=== PATIENT | female | born 1985 | race Caucasian/White ===

== ENCOUNTER 2017-06-03 17:26 | Inpatient (IN) | payer SELFPAY ==
[~2017-06-03] VITALS: Ht 158.8 cm; Wt 51.9 kg
[2017-06-03 17:36] VITALS: BP 134/80; PULSE 110; RESP 20; TEMP 100.2; O2SAT 95
[2017-06-03 17:43] VITALS: O2SAT 98
--- NOTE | 2017-06-03 18:18 | RADRPT ---
EXAM DATE/TIME: 06/03/2017 18:16 [place] COMPARISON: No previous studies available for comparison. INDICATIONS : Cough. MEDICAL HISTORY : None. SURGICAL HISTORY : None. ENCOUNTER: Initial ACUITY: 2 days PAIN SCORE: 0/10 LOCATION: Bilateral chest FINDINGS: A single view of the chest demonstrates the lungs to be symmetrically aerated without evidence of mas s, infiltrate or effusion. The cardiomediastinal contours are unremarkable. Osseous structures are intact. CONCLUSION: The lungs are clear. Shadi De La O MD on June 03, 2017 at 18:16 Board Certified Radiologist. This report was verified electronically.
[2017-06-03 18:26] LABS: AUTOMATED NEUTROPHIL # 5.7 TH/MM3 (1.8-7.7); BASOPHIL % 0.4 % (0.0-2.0); EOSINOPHIL # 0.1 TH/MM3 (0-0.4); HEMATOCRIT 36.2 % (35.0-46.0); HEMO FLAGS DIFF FINAL; LYMPH % 23.7 % (9.0-44.0); LYMPHOCYTE # 2.1 TH/MM3 (1.0-4.8); MEAN CELL VOLUME 80.3 FL (80.0-100.0); MEAN CORPUSCULAR HEMOGLOBIN 26.5 PG (27.0-34.0); MONO % 10.9 % (0.0-8.0); PLATELET COUNT 181 TH/MM3 (150-450); RED BLOOD COUNT 4.51 MIL/MM3 (4.00-5.30); RED CELL DISTRIBUTION WIDTH 17.1 % (11.6-17.2); WHITE BLOOD COUNT 8.9 TH/MM3 (4.0-11.0)
--- NOTE | 2017-06-03 18:29 | PD ---
HPI Chief Complaint: Alcohol/Drug Intoxication Time Seen by Provider: 17:38 Travel History International Travel<30 days: No Contact w/Intl Traveler<30days: No Traveled to known affect area: No History of Present Illness HPI 31-year-old female was brought in by [employer]icia[employer] act. Patient was found shooting up heroin in public bathroom locally. Police was called. Patient admitted to shooting up heroin. Patient was brought in for evaluation. Patient denies any headache. Patient denies any chest pain or shortness of breath. Patient states that she had persistent cough recently. Patient denies any abdominal pain. Patient denies any nausea vomiting diarrhea. Patient complains of rash on the face for the past several weeks. Patient denies any medical problem. Patient states that she is not on any routine medication. Patient states that she is allergic to. Patient denies any alcohol abuse. Patient denies any other drug abuse except heroin. Patient denies any fever chills. PFSH Past Medical History Medical History: Denies Significant Hx ?: Not LMP: 1 year ago Past Surgical History Tonsillectomy: Yes Social History Alcohol Use: Yes Tobacco Use: Yes Substance Use: No Allergies-Medications (Allergen,Severity, Reaction): Coded Allergies: Tylenol (Verified Allergy, Severe, 06/03/17) Reported Meds & Prescriptions Reported Meds & Active Scripts Active No Active Prescriptions or Reported Medications Review of Systems General / Constitutional: No: Fever Eyes: No: Visual changes HENT: No: Headaches Cardiovascular: No: Chest Pain or Discomfort Respiratory: Positive: Cough, No: Shortness of Breath Gastrointestinal: No: Abdominal Pain Genitourinary: No: Dysuria Musculoskeletal: No: Pain Skin: No Rash Neurologic: No: Weakness Psychiatric: No: Depression Endocrine: No: Polydipsia Hematologic/Lymphatic: No: Easy Bruising Physical Exam Narrative GENERAL: Well-nourished, well-developed patient. SKIN: Patient had multiple lesions on the face and extremity. HEAD: Normocephalic. EYES: No scleral icterus. No injection or drainage. NECK: Supple, trachea midline. No JVD or lymphadenopathy. CARDIOVASCULAR: Regular rate and rhythm without murmurs, gallops, or rubs. RESPIRATORY: Breath sounds equal bilaterally. No accessory muscle use. GASTROINTESTINAL: Abdomen soft, non-tender, nondistended. MUSCULOSKELETAL: No cyanosis, or edema. BACK: Nontender without obvious deformity. No CVA tenderness. Neurologic exam: Patient seems anxious otherwise awake alert oriented 3. No obvious focal neurological deficit. Data Data Last Documented VS Vital Signs Date Time Temp Pulse Resp B/P Pulse Ox O2 Delivery O2 Flow Rate FiO2 06/03/17 19:11 106 18 110/60 99 Room Air 06/03/17 17:36 100.2 Orders Electrocardiogram (06/03/17 17:38) Complete Blood Count With Diff (06/03/17 17:38) Comprehensive Metabolic Panel (06/03/17 17:38) Creatine Kinase (Cpk) (06/03/17 17:38) Lipase (06/03/17 17:38) Urinalysis - C+S If Indicated (06/03/17 17:38) Chest, Single Ap (06/03/17 17:38) Iv Access Insert/Monitor (06/03/17 17:38) Ecg Monitoring (06/03/17 17:38) Oximetry (06/03/17 17:38) Drug Screen, Random Urine (06/03/17 17:38) Lactic Acid (06/03/17 17:42) Blood Culture (06/03/17 17:42) CKMB (06/03/17 17:40) CKMB% (06/03/17 17:40) Influenzae A/B Antigen (06/03/17 19:12) Labs Laboratory Tests Test 06/03/17 06/03/17 17:40 17:50 White Blood Count 8.9 TH/MM3 Red Blood Count 4.51 MIL/MM3 Hemoglobin 12.0 GM/DL Hematocrit 36.2 % Mean Corpuscular Volume 80.3 FL Mean Corpuscular Hemoglobin 26.5 PG Mean Corpuscular Hemoglobin 33.0 % Concent Red Cell Distribution Width 17.1 % Platelet Count 181 TH/MM3 Mean Platelet Volume 8.2 FL Neutrophils (%) (Auto) 64.0 % Lymphocytes (%) (Auto) 23.7 % Monocytes (%) (Auto) 10.9 % Eosinophils (%) (Auto) 1.0 % Basophils (%) (Auto) 0.4 % Neutrophils # (Auto) 5.7 TH/MM3 Lymphocytes # (Auto) 2.1 TH/MM3 Monocytes # (Auto) 1.0 TH/MM3 Eosinophils # (Auto) 0.1 TH/MM3 Basophils # (Auto) 0.0 TH/MM3 CBC Comment DIFF FINAL Differential Comment Sodium Level 139 MEQ/L Potassium Level 3.6 MEQ/L Chloride Level 107 MEQ/L Carbon Dioxide Level 23.9 MEQ/L Anion Gap 8 MEQ/L Blood Urea Nitrogen 20 MG/DL Creatinine 0.82 MG/DL Estimat Glomerular Filtration 80 ML/MIN Rate Random Glucose 97 MG/DL Calcium Level 9.4 MG/DL Total Bilirubin 0.4 MG/DL Aspartate Amino Transf 170 U/L (AST/SGOT) Alanine Aminotransferase 197 U/L (ALT/SGPT) Alkaline Phosphatase 89 U/L Total Creatine Kinase 351 U/L Creatine Kinase MB 2.4 NG/ML Creatine Kinase MB % 0.7 % Total Protein 8.0 GM/DL Albumin 3.8 GM/DL Lipase 68 U/L Lactic Acid Level 2.5 mmol/L [facility] Medical Decision Making Medical Screen Exam Complete: Yes Emergency Medical Condition: Yes Interpretation(s) 1828 PM. Chest x-ray shows no acute consolidation. CBC within normal limit. 1915 p.m. CBC within normal limit. CMP within normal limit. Lactic acid 2.5. BUN 20. AST 170. ALT 197. Total CK 351. Normal MB fraction. Differential Diagnosis Differential diagnosis including URI, bronchitis, pneumonia, PE, pneumothorax, substance abuse, sepsis. Narrative Course 31-year-old female with history of heroin abuse, fever, coughing. Normal saline solution 1 25 cc an hour. Vancomycin 1 g IV. Zithromax 500 mg IV. Diagnosis Primary Impression: Infected skin lesion Additional Impressions: Bronchitis Substance abuse Admitting Information Admitting Physician Requests: Admit Scripts No Active Prescriptions or Reported Meds Aiden Wiley MD Jun 03, 2017 18:29
[2017-06-03 18:46] LABS: ANION GAP 8 MEQ/L (5-15); AST (GOT) 170 U/L (15-37); BICARBONATE 23.9 MEQ/L (21.0-32.0); BLOOD UREA NITROGEN 20 MG/DL (7-18); CHLORIDE 107 MEQ/L (98-107); GLOMERULAR FILTRATION RATE 80 ML/MIN (>89); POTASSIUM 3.6 MEQ/L (3.5-5.1); SODIUM (NA) 139 MEQ/L (136-145)
[2017-06-03 18:47] LABS: ALT (GPT) 197 U/L (10-53)
[2017-06-03 18:50] LABS: ALKALINE PHOSPHATASE 89 U/L (45-117); CREATINE KINASE 351 U/L (26-192); TOTAL BILIRUBIN ADULT 0.4 MG/DL (0.2-1.0)
[2017-06-03 19:11] VITALS: BP 110/60; PULSE 106; RESP 18; O2SAT 99
[2017-06-03 19:13] LABS: CKMB 2.4 NG/ML (0.5-3.6)
[2017-06-03] MEDS ORDERED: LACTULOSE SYRUP 20 GM/30 ML CUP PO PRN (19:30)
[2017-06-03] MEDS ORDERED: SENNOSIDES 8.6 MG TAB PO PRN (19:30)
[2017-06-03] MEDS ORDERED: ONDANSETRON HCL 4 MG/2 ML VIAL IVP PRN (19:30)
[2017-06-03] MEDS ORDERED: VANCOMYCIN INJ 1,000 MG in SODIUM CHLOR 0.9% 250 ML INJ 250 ML IV ONE (19:30)
[2017-06-03] MEDS ORDERED: SODIUM CHLORIDE 0.9% FLUSH 10 ML FLUSH IV FLUSH PRN (19:30)
[2017-06-03] MEDS ORDERED: SODIUM CHLOR 0.9% 1000 ML INJ 1,000 ML IV SCH (19:30)
[2017-06-03] MEDS ORDERED: AZITHROMYCIN INJ 500 MG in SODIUM CHLOR 0.9% 250 ML INJ 250 ML IV ONE (19:30)
[2017-06-03] MEDS ORDERED: Vancomycin Consult Pharmacy 1 EA OTHER SCH (19:30)
[2017-06-03] MEDS ORDERED: MAGNESIUM HYDROXIDE SUSP 30 ML CUP PO PRN (19:30)
[2017-06-03] MEDS ORDERED: BISACODYL 10 MG SUPP RECTAL PRN (19:30)
--- NOTE | 2017-06-03 19:47 | HHI.HP ---
HPI Service [facility] Primary Care Physician No Primary Care Physician Admission Diagnosis infected lesions. Substance abuse. Bronchitis Diagnoses: (1) SIRS (systemic inflammatory response syndrome) Diagnosis: Principal (2) Infected skin lesion Diagnosis: Principal (3) Dehydration Diagnosis: Principal (4) Lactic acidosis Diagnosis: Principal (5) Heroin abuse Diagnosis: Principal (6) Tobacco abuse Diagnosis: Principal Travel History International Travel<30 Days: No Contact w/Intl Traveler <30 Da: No Traveled to Known Affected Are: No History of Present Illness This 31-year-old female with a PMH of Heroin Abuse and Tobacco Abuse was brought into the ER by Police under [place] Act after she was found shooting up heroin in a public bathroom. Patient without any complaints at this time. She does report interest in detox. On exam, patient noted to have multiple red, infected lesions to face and extremities which she states that been ongoing for the last 2-3 weeks. Denies fever, chills, cough or SOB. On arrival, BP 134/80 , HR 110, O2 sat 95% on RA, Temp 100.2. Chemistry essentially unremarkable except for BUN 20, GFR 80. Lactic Acid 2.5. CPK 351. LFTs mildly elevated. CXR with no acute findings. S/p Blood Cultures, Vanc/Zithro in ER. Review of Systems Except as stated in HPI: all other systems reviewed are Neg ROS: 14 point review of systems otherwise negative. Past Family Social History Past Medical History PMH: Heroin Abuse and Tobacco Abuse Past Surgical History PAST SURGICAL HISTORY: Tonsillectomy Allergies: Coded Allergies: Tylenol (Verified Allergy, Severe, 06/03/17) Family History PAST FAMILY HISTORY: Reviewed. No h/o DM or CAD Social History PAST SOCIAL HISTORY: Positive for alcohol. Smokes 1ppd. +IVDU w/ Heroin Physical Exam Vital Signs Vital Signs Date Time Temp Pulse Resp B/P Pulse Ox O2 Delivery O2 Flow Rate FiO2 06/03/17 19:11 106 18 110/60 99 Room Air 06/03/17 17:43 98 06/03/17 17:36 100.2 110 20 134/80 95 Physical Exam PE: GENERAL: Pleasant middle-aged white female in no acute distress, very restless, agitated. HEENT: PERRLA, EOMI. No scleral icterus or conjunctival pallor. No lid lag or facial droop. CARDIOVASCULAR: Regular rate and rhythm. No obvious murmurs to auscultation. No chest tenderness to palpation. RESPIRATORY: No obvious rhonchi or wheezing. Clear to auscultation. Breath sounds equal bilaterally. GASTROINTESTINAL: Abdomen soft, non-tender, nondistended. BS normal. MUSCULOSKELETAL: Extremities without clubbing, cyanosis, or edema. No obvious deformities. Multiple red excoriated lesions to face and extremities. NEUROLOGICAL: Awake, alert and oriented x4. No focal neurologic deficits. Moving both upper and lower extremities spontaneously. Laboratory Laboratory Tests Test 06/03/17 06/03/17 17:40 17:50 White Blood Count 8.9 Red Blood Count 4.51 Hemoglobin 12.0 Hematocrit 36.2 Mean Corpuscular Volume 80.3 Mean Corpuscular Hemoglobin 26.5 Mean Corpuscular Hemoglobin 33.0 Concent Red Cell Distribution Width 17.1 Platelet Count 181 Mean Platelet Volume 8.2 Neutrophils (%) (Auto) 64.0 Lymphocytes (%) (Auto) 23.7 Monocytes (%) (Auto) 10.9 Eosinophils (%) (Auto) 1.0 Basophils (%) (Auto) 0.4 Neutrophils # (Auto) 5.7 Lymphocytes # (Auto) 2.1 Monocytes # (Auto) 1.0 Eosinophils # (Auto) 0.1 Basophils # (Auto) 0.0 CBC Comment DIFF FINAL Differential Comment Sodium Level 139 Potassium Level 3.6 Chloride Level 107 Carbon Dioxide Level 23.9 Anion Gap 8 Blood Urea Nitrogen 20 Creatinine 0.82 Estimat Glomerular Filtration 80 Rate Random Glucose 97 Calcium Level 9.4 Total Bilirubin 0.4 Aspartate Amino Transf 170 (AST/SGOT) Alanine Aminotransferase 197 (ALT/SGPT) Alkaline Phosphatase 89 Total Creatine Kinase 351 Creatine Kinase MB 2.4 Creatine Kinase MB % 0.7 Total Protein 8.0 Albumin 3.8 Lipase 68 Lactic Acid Level 2.5 Date/Time Procedure Status Source Growth 06/03/17 17:55 Aerobic Blood Culture Received Blood Peripheral Pending 06/03/17 17:55 Anaerobic Blood Culture Received Blood Peripheral Pending Result Diagram: 06/03/17 1740 7/29/17 1740 Assessment and Plan Problem List: (1) SIRS (systemic inflammatory response syndrome) ICD Code: R65.10 Status: Acute (2) Infected skin lesion ICD Code: L08.9 Status: Acute (3) Dehydration ICD Code: E86.0 Status: Acute (4) Lactic acidosis ICD Code: E87.2 Status: Acute (5) Heroin abuse ICD Code: F11.10 Status: Acute (6) Tobacco abuse ICD Code: Z72.0 Status: Acute Assessment and Plan A/P: 1. SIRS: Temp 100.2, HR 110. Lactic Acid 2.5. Source-likely rash to face/ extremities. S/p Blood Cultures, Vanc/Zithro in ER. Will continue w/ IV Abx, follow up cultures. 2. Infected Skin Lesions: multiple red/excoriated, pruritic lesions to face and extremities x2-3 wks. Continue w/ IV Abx as above. Benadryl prn. 3. Dehydration: BUN 20, GFR 80. IVF for hydration, repeat labs in am. 4. Lactic Acidosis: Lactate 2.5, likely secondary to dehydration. Repeat Lactate. IVF for hydration. 5. Heroin Abuse: Brought to ER under [place] Act. Pt interested in Detox. Ativan prn. 6. Tobacco Abuse: Pt counselled. NicoDerm prn if needed. 7. DVT Prophylaxis: SCD/Teds. 8. Social work for d/c planning as needed. 9. Case discussed w/ ER physician at length. Physician Certification 2 Midnight Certification Type: Admission for Inpatient Services Order for Inpatient Services The services are ordered in accordance with Medicare regulations or non- Medicare payer requirements, as applicable. In the case of services not specified as inpatient-only, they are appropriately provided as inpatient services in accordance with the 2-midnight benchmark. Estimated LOS (days): 2 days is the estimated time the patient will need to remain in the hospital, assuming treatment plan goals are met and no additional complications. Post-Hospital Plan: Not yet determined Lisa Busby MD Jun 03, 2017 19:47
[2017-06-03 20:45] VITALS: BP 117/65; PULSE 104; RESP 17; TEMP 98.3; O2SAT 97
[2017-06-03] MEDS ORDERED: diphenhydrAMINE HCL 25 MG CAP PO PRN (20:45)
[2017-06-03 21:14] VITALS: PULSE 101
[2017-06-03] MEDS: DOCUSATE SODIUM 50 MG/SENNA 8.6 MG TAB PO SCH (21:24)
[2017-06-03] MEDS: SODIUM CHLORIDE 0.9% FLUSH 10 ML FLUSH IV FLUSH SCH (21:24)
[2017-06-03] MEDS: SODIUM CHLOR 0.9% 1000 ML INJ 1,000 ML IV SCH (21:24)
[2017-06-04] VITALS (7 sets, daily range): BP systolic 101–130; BP diastolic 56–65; PULSE 80–96; RESP 17–20; TEMP 97.8–99.5; O2SAT 96–99
[2017-06-04] MEDS: PIPERACIL-TAZO 4.5 GM PREMIX 100 ML IV SCH ×4 (01:02→19:42)
[2017-06-04 08:00] LABS: BASOPHIL % 0.2 % (0.0-2.0); EOSINOPHIL # 0.2 TH/MM3 (0-0.4); EOSINOPHIL % 2.3 % (0.0-4.0); HEMATOCRIT 33.1 % (35.0-46.0); HEMO FLAGS DIFF FINAL; LYMPHOCYTE # 2.4 TH/MM3 (1.0-4.8); MEAN CELL VOLUME 80.9 FL (80.0-100.0); MEAN CORPUSCULAR HEMOGLOBIN 26.5 PG (27.0-34.0); MEAN CORPUSCULAR HGB CONC 32.8 % (32.0-36.0); MONO % 11.9 % (0.0-8.0); NEUT % 53.6 % (16.0-70.0); PLATELET COUNT 172 TH/MM3 (150-450); RED BLOOD COUNT 4.09 MIL/MM3 (4.00-5.30); WHITE BLOOD COUNT 7.4 TH/MM3 (4.0-11.0)
[2017-06-04 08:22] LABS: ALKALINE PHOSPHATASE 72 U/L (45-117); ALT (GPT) 154 U/L (10-53); ANION GAP 8 MEQ/L (5-15); AST (GOT) 137 U/L (15-37); BICARBONATE 22.3 MEQ/L (21.0-32.0); BLOOD UREA NITROGEN 10 MG/DL (7-18); CHLORIDE 109 MEQ/L (98-107); GLOMERULAR FILTRATION RATE 125 ML/MIN (>89); POTASSIUM 3.6 MEQ/L (3.5-5.1); SODIUM (NA) 139 MEQ/L (136-145); TOTAL BILIRUBIN ADULT 0.7 MG/DL (0.2-1.0)
[2017-06-04] MEDS: VANCOMYCIN INJ 750 MG in SODIUM CHLOR 0.9% 250 ML INJ 250 ML IV SCH ×2 (08:52→20:49)
[2017-06-04] MEDS: DOCUSATE SODIUM 50 MG/SENNA 8.6 MG TAB PO SCH ×2 (08:52→19:42)
[2017-06-04] MEDS: SODIUM CHLORIDE 0.9% FLUSH 10 ML FLUSH IV FLUSH SCH ×2 (08:53→19:42)
[2017-06-04] MEDS: SODIUM CHLOR 0.9% 1000 ML INJ 1,000 ML IV SCH ×2 (09:44→17:23)
[2017-06-04] MEDS: LORazepam 2 MG/ML VIAL IV PUSH PRN ×3 (11:59→19:43)
--- NOTE | 2017-06-04 14:16 | HHI.PR ---
Subjective Remarks No acute events overnight. Afebrile, vital signs stable. Patient sleeping and refuses to wake up more interactive during examination. Objective Vitals Vital Signs Date Time Temp Pulse Resp B/P Pulse Ox O2 Delivery O2 Flow Rate FiO2 06/04/17 12:20 Room Air 06/04/17 08:00 Room Air 06/04/17 04:39 Room Air 06/04/17 04:00 98.5 86 17 113/57 99 06/04/17 02:00 Room Air 06/04/17 00:00 99.5 93 20 130/60 96 06/03/17 22:00 Room Air 06/03/17 21:14 101 06/03/17 20:45 98.3 104 17 117/65 97 06/03/17 19:11 106 18 110/60 99 Room Air 06/03/17 17:43 98 06/03/17 17:36 100.2 110 20 134/80 95 I/O 06/03/17 06/03/17 06/03/17 06/04/17 06/04/17 06/04/17 06:59 14:59 22:59 06:59 14:59 22:59 Intake Total 1000 ml 1042 ml Balance 1000 ml 1042 ml Intake Oral 240 ml IV Total 1000 ml 802 ml # Voids 1 Result Diagram: 06/04/1761906/04/17629 Objective Remarks GENERAL: Pleasant middle-aged white female in no acute distress, very restless, agitated. HEENT: PERRLA, EOMI. No scleral icterus or conjunctival pallor. No lid lag or facial droop. CARDIOVASCULAR: Regular rate and rhythm. No obvious murmurs to auscultation. No chest tenderness to palpation. RESPIRATORY: No obvious rhonchi or wheezing. Clear to auscultation. Breath sounds equal bilaterally. GASTROINTESTINAL: Abdomen soft, non-tender, nondistended. BS normal. MUSCULOSKELETAL: Extremities without clubbing, cyanosis, or edema. No obvious deformities. SKIN: Multiple red excoriated lesions to face and upper extremities. Abdomen the lower extremities free from lesions. NEUROLOGICAL: Awake, alert and oriented x4. No focal neurologic deficits. Moving both upper and lower extremities spontaneously. A/P Problem List: (1) SIRS (systemic inflammatory response syndrome) ICD Code: R65.10 Status: Acute (2) Infected skin lesion ICD Code: L08.9 Status: Acute (3) Dehydration ICD Code: E86.0 Status: Acute (4) Lactic acidosis ICD Code: E87.2 Status: Acute (5) Heroin abuse ICD Code: F11.10 Status: Acute (6) Tobacco abuse ICD Code: Z72.0 Status: Acute Assessment and Plan 1. SIRS: Temp 100.2, HR 110. Lactic Acid 2.5. Afebrile since admission. Source-likely infected lesions to face/upper extremities. S/p Blood Cultures - NG x 1 day. Continue Vanc/Zosyn. 2. Infected Skin Lesions: multiple red/excoriated, pruritic lesions to face and extremities x2-3 wks. Continue w/ IV Abx as above. Benadryl prn. 3. Dehydration: Resolved 4. Lactic Acidosis: Lactate 2.5, likely secondary to dehydration. Resolved. 5. Heroin Abuse: Brought to ER under [place] Act. Pt interested in Detox. Ativan prn. 6. Tobacco Abuse: Pt counselled. NicoDerm prn if needed. 7. DVT Prophylaxis: SCD/Teds. 8. Social work for d/c planning as needed. Discharge Planning Pending culture results and continued clinical improvement. Celestina Jeffrey MD R3 Jun 04, 2017 14:16
--- NOTE | 2017-06-04 16:22 | EKG ---
Date Performed: 06/03/2017 Time Performed: 17:49:44 PTAGE: 31 years EKG: SINUS TACHYCARDIA SLIGHT RIGHT VENTRICULAR CONDUCTION DISTURBANCE ABNORMAL RHYTHM ECG NO PREVIOUS TRACING DOCTOR: Marlon Bentley Interpretating Date/Time 06/04/2017 16:22:17
[2017-06-04 16:42] LABS: BACTERIA, URINE RARE /hpf; BLOOD, URINE NEG (NEG); COMMENT (UR) CULT NOT INDICATED; CULTURE IF INDICATED CULT NOT INDICATED; GLUCOSE,URINE NEG (NEG); KETONE, URINE NEG (NEG); MUCUS URINE FEW /lpf (OCC); NITRITE,URINE NEG (NEG); PH, URINE 7.5 (5.0-8.5); URINE COLOR YELLOW (YELLW/STRAW)
[2017-06-04 16:48] LABS: AMPHETAMINE, URINE POS (NEG); BARBITURATES, URINE NEG (NEG); COCAINE, URINE NEG (NEG)
[2017-06-05] VITALS: BP 126/69; PULSE 85; RESP 18; TEMP 98.9; O2SAT 99
[2017-06-05] MEDS: SODIUM CHLOR 0.9% 1000 ML INJ 1,000 ML IV SCH ×2 (00:51→11:12)
[2017-06-05] MEDS: PIPERACIL-TAZO 4.5 GM PREMIX 100 ML IV SCH ×2 (00:51→08:46)
[2017-06-05 04:00] VITALS: BP 108/66; PULSE 82; RESP 18; TEMP 98.7; O2SAT 97
[2017-06-05] MEDS: LORazepam 2 MG/ML VIAL IV PUSH PRN ×2 (05:09→08:43)
[2017-06-05 07:53] LABS: BASOPHIL % 0.4 % (0.0-2.0); EOSINOPHIL # 0.2 TH/MM3 (0-0.4); EOSINOPHIL % 4.2 % (0.0-4.0); HEMATOCRIT 34.4 % (35.0-46.0); HEMO FLAGS DIFF FINAL; LYMPH % 46.5 % (9.0-44.0); LYMPHOCYTE # 2.4 TH/MM3 (1.0-4.8); MEAN CELL VOLUME 80.8 FL (80.0-100.0); MEAN CORPUSCULAR HEMOGLOBIN 25.8 PG (27.0-34.0); MEAN CORPUSCULAR HGB CONC 31.9 % (32.0-36.0); MONO % 11.2 % (0.0-8.0); NEUT % 37.7 % (16.0-70.0); PLATELET COUNT 192 TH/MM3 (150-450); RED BLOOD COUNT 4.25 MIL/MM3 (4.00-5.30); RED CELL DISTRIBUTION WIDTH 16.7 % (11.6-17.2); WHITE BLOOD COUNT 5.3 TH/MM3 (4.0-11.0)
[2017-06-05 08:01] VITALS: BP 103/57; PULSE 81; RESP 18; TEMP 98.3; O2SAT 98
[2017-06-05 08:19] LABS: ANION GAP 8 MEQ/L (5-15); AST (GOT) 133 U/L (15-37); BICARBONATE 24.8 MEQ/L (21.0-32.0); BLOOD UREA NITROGEN 7 MG/DL (7-18); CHLORIDE 108 MEQ/L (98-107); GLOMERULAR FILTRATION RATE 136 ML/MIN (>89); POTASSIUM 3.6 MEQ/L (3.5-5.1); SODIUM (NA) 141 MEQ/L (136-145)
[2017-06-05 08:20] LABS: ALT (GPT) 165 U/L (10-53)
[2017-06-05 08:22] LABS: ALKALINE PHOSPHATASE 68 U/L (45-117); TOTAL BILIRUBIN ADULT 0.3 MG/DL (0.2-1.0)
[2017-06-05] MEDS: SODIUM CHLORIDE 0.9% FLUSH 10 ML FLUSH IV FLUSH SCH (08:44)
[2017-06-05] MEDS ORDERED: PHARMACY ORDERED LAB ONE (08:45)
[2017-06-05] MEDS: DOCUSATE SODIUM 50 MG/SENNA 8.6 MG TAB PO SCH (08:46)
[2017-06-05 09:00] VITALS: PULSE 79
[2017-06-05] MEDS ORDERED: SULF1TAB23 PO (11:47)
[2017-06-05] MEDS ORDERED: BENA25CA4 PO (11:47)
--- NOTE | 2017-06-05 11:48 | HHI.DCPOC ---
Discharge Care Plan Diagnosis: (1) SIRS (systemic inflammatory response syndrome) (2) Infected skin lesion (3) Heroin abuse (4) Scabies Goals to Promote Your Health * To prevent worsening of your condition and complications * To maintain your health at the optimal level Directions to Meet Your Goals Take your medications as prescribed Follow your dietary instruction Follow activity as directed Keep your appointments as scheduled Take your immunizations and boosters as scheduled If your symptoms worsen call your PCP, if no PCP go to Urgent Care Center or Emergency Room Smoking is Dangerous to Your Health. Avoid second hand smoke Call the 24-hour hour crisis hotline for domestic abuse at Ene Everett MD Jun 05, 2017 11:48
--- NOTE | 2017-06-05 11:50 | HHI.DS ---
Discharge Summary Admission Date Jun 03, 2017 at 19:42 Admitting Diagnosis infected lesions. Substance abuse. Bronchitis (1) SIRS (systemic inflammatory response syndrome) ICD Code: R65.10 (2) Infected skin lesion ICD Code: L08.9 (3) Dehydration ICD Code: E86.0 (4) Lactic acidosis ICD Code: E87.2 (5) Heroin abuse ICD Code: F11.10 (6) Tobacco abuse ICD Code: Z72.0 Brief History - From Admission This 31-year-old female with a PMH of Heroin Abuse and Tobacco Abuse was brought into the ER by Police under [place] Act after she was found shooting up heroin in a public bathroom. Patient without any complaints at this time. She does report interest in detox. On exam, patient noted to have multiple red, infected lesions to face and extremities which she states that been ongoing for the last 2-3 weeks. Denies fever, chills, cough or SOB. On arrival, BP 134/80 , HR 110, O2 sat 95% on RA, Temp 100.2. Chemistry essentially unremarkable except for BUN 20, GFR 80. Lactic Acid 2.5. CPK 351. LFTs mildly elevated. CXR with no acute findings. S/p Blood Cultures, Vanc/Zithro in ER. CBC/BMP: 06/05/17 0704 06/05/17 0704 Significant Findings Laboratory Tests Test 06/03/17 06/03/17 06/04/17 06/04/17 17:40 17:50 06:20 06:30 Mean Corpuscular Hemoglobin 26.5 PG 26.5 PG (27.0-34.0) (27.0-34.0) Monocytes (%) (Auto) 10.9 % 11.9 % (0.0-8.0) (0.0-8.0) Monocytes # (Auto) 1.0 TH/MM3 (0-0.9) Blood Urea Nitrogen 20 MG/DL (7-18) Estimat Glomerular Filtration 80 ML/MIN (>89) Rate Aspartate Amino Transf 170 U/L (15-37) 137 U/L (15-37) (AST/SGOT) Alanine Aminotransferase 197 U/L (10-53) 154 U/L (10-53) (ALT/SGPT) Total Creatine Kinase 351 U/L (26-192) Lipase 68 U/L (73-393) Lactic Acid Level 2.5 mmol/L (0.4-2.0) Hemoglobin 10.8 GM/DL (11.6-15.3) Hematocrit 33.1 % (35.0-46.0) Chloride Level 109 MEQ/L (98-107) Calcium Level 8.1 MG/DL (8.5-10.1) Total Protein 6.1 GM/DL (6.4-8.2) Albumin 2.6 GM/DL (3.4-5.0) Test 06/04/17 06/05/17 06/05/17 16:50 07:04 08:00 Urine Turbidity HAZY (CLEAR) Urine Bacteria RARE /hpf (NONE) Urine Mucus FEW /lpf (OCC) Urine Opiates Screen POS (NEG) Urine Amphetamines Screen POS (NEG) Hemoglobin 11.0 GM/DL (11.6-15.3) Hematocrit 34.4 % (35.0-46.0) Mean Corpuscular Hemoglobin 25.8 PG (27.0-34.0) Mean Corpuscular Hemoglobin 31.9 % Concent (32.0-36.0) Lymphocytes (%) (Auto) 46.5 % (9.0-44.0) Monocytes (%) (Auto) 11.2 % (0.0-8.0) Eosinophils (%) (Auto) 4.2 % (0.0-4.0) Chloride Level 108 MEQ/L (98-107) Calcium Level 8.3 MG/DL (8.5-10.1) Aspartate Amino Transf 133 U/L (15-37) (AST/SGOT) Alanine Aminotransferase 165 U/L (10-53) (ALT/SGPT) Total Protein 6.3 GM/DL (6.4-8.2) Albumin 2.7 GM/DL (3.4-5.0) Vancomycin Level Trough 4.2 MCG/ML (5.0-10.0) PE at Discharge GENERAL: Pleasant middle-aged white female in no acute distress, very restless, agitated. HEENT: PERRLA, EOMI. No scleral icterus or conjunctival pallor. No lid lag or facial droop. CARDIOVASCULAR: Regular rate and rhythm. No obvious murmurs to auscultation. No chest tenderness to palpation. RESPIRATORY: No obvious rhonchi or wheezing. Clear to auscultation. Breath sounds equal bilaterally. GASTROINTESTINAL: Abdomen soft, non-tender, nondistended. BS normal. MUSCULOSKELETAL: Extremities without clubbing, cyanosis, or edema. No obvious deformities. SKIN: Multiple red excoriated lesions to face and upper extremities. Abdomen the lower extremities free from lesions. NEUROLOGICAL: Awake, alert and oriented x4. No focal neurologic deficits. Moving both upper and lower extremities spontaneously. Hospital Course 1. SIRS: Temp 100.2, HR 110. Lactic Acid 2.5. Afebrile since admission. Source-likely infected lesions to face/upper extremities. S/p Blood Cultures - NG x 1 day. Continue Vanc/Zosyn. 2. Infected Skin Lesions: multiple red/excoriated, pruritic lesions to face and extremities x2-3 wks. Continue w/ IV Abx as above. Benadryl prn. 3. Dehydration: Resolved 4. Lactic Acidosis: Lactate 2.5, likely secondary to dehydration. Resolved. 5. Heroin Abuse: Brought to ER under [place] Act. Pt interested in Detox. Ativan prn. 6. Tobacco Abuse: Pt counselled. NicoDerm prn if needed. 7. DVT Prophylaxis: SCD/Teds. 8. Social work for d/c planning as needed. Pt Condition on Discharge: Good Discharge Disposition: Discharge Home Discharge Instructions DIET: Follow Instructions for: As Tolerated, No Restrictions Activities you can perform: Regular-No Restrictions Ene Everett MD Jun 05, 2017 11:50
[2017-06-05] MEDS ORDERED: VANCOMYCIN 1,000 MG/NS 250 ML IV SCH ×2 (12:00)
[2017-06-05] MEDS ORDERED: SULFAMETHOXAZOLE-TRIMETHOPRIM DS 800-160 MG TAB PO SCH (12:15)
[2017-06-05 12:17] VITALS: BP 112/64; PULSE 79; RESP 18; TEMP 98.4; O2SAT 98
[2017-06-05] MEDS ORDERED: PERMETHRIN 5% CREAM 60 GM TOPICAL ONE (12:30)
[2017-06-06] MEDS ORDERED: PHARMACY ORDERED LAB ONE (11:45)
== END 2017-06-05 17:06 | disposition home or self-care (01) | DRG 607 ==
LOC: NEPD 17:26 → NEDA 19:42 → N04B 20:42
PROVIDERS: ADMIT Family Medicine; ATTEND Family Medicine
DX: L29.9 Pruritus, unspecified (principal); E87.2 Acidosis; B86 Scabies; E86.0 Dehydration; F11.10 Opioid abuse, uncomplicated; F17.200 Nicotine dependence, unspecified, uncomplicated; J40 Bronchitis, not specified as acute or chronic
CPT/HCPCS: 71010; 80053; 80202; 80307; 81001; 82550; 82552; 83605; 83690; 85025; 87040; 87804; 93005; 96374; J0456; J2060; J2543; J3370; J7030; J7050